=== PATIENT | male | born 1960 | race Caucasian/White ===

== ENCOUNTER → 2016-08-04 | Outpatient (CLI) | payer BC ==
--- NOTE | 2016-08-05 10:19 | CT ---
EXAM DESCRIPTION: Soft Tissue Neck w/Contrast CLINICAL HISTORY: 56 years,Male,MALIGNANT NEOPLASM OF LARYNX, UNSPECIFIED COMPARISON: February 12, 2016 and November 18, 2015 TECHNIQUE: Multiple axial helical tomographic images obtained of the neck and the reconstruct sagittal plane with IV contrast. FINDINGS: There is one lymph node seen in the left anterior cervical chain just below the angle the mandible measuring almost 9 mm in short axis. It is unchanged in the past two exams. There is been a laryngectomy with reconstruction and tracheostomy tube in place. Postsurgical stranding changes seen in the right lateral parapharyngeal space as small low density mass containing some calcifications just posterior to the carotid artery at the level of angle the mandible measuring 1.9 x 0.9 cm it is unchanged since prior studies. The parotid and submandibular glands and thyroid appear unremarkable. Lung apices and superior mediastinum unremarkable. The included paranasal sinuses demonstrate a few small mucous retention cyst in the floor the maxillary sinuses. There is bony fusion of C5-6 and seven. IMPRESSION: Stable exam demonstrating a prior laryngectomy, tracheostomy two and reconstructive surgery of the neck. There is a single stable lymph node at the left angle the mandible and a small low-density mass with some calcifications at the right carotid space at the same level this could just be postsurgical changes but cannot exclude recurrent although it is stable. Electronically signed by: Jens Osorio MD 08/05/2016 10:19 AM CDT
== END | disposition home or self-care (01) ==
LOC: CT 09:32
PROVIDERS: ATTEND Internal Medicine Hematology & Oncology
DX: C32.9 Malignant neoplasm of larynx, unspecified (principal); E03.9 Hypothyroidism, unspecified

== ENCOUNTER → 2017-03-19 | Outpatient (CLI) | payer BC ==
--- NOTE | 2017-03-22 09:28 | CT ---
EXAM DESCRIPTION: CT without and with contrast CLINICAL HISTORY: MALIGNANT NEOPLASM OF LARYNX COMPARISON: None Available. TECHNIQUE: Thin section CT with coronal and sagittal reformatted images. This exam was performed according to our departmental dose-optimization program, which includes automated exposure control, adjustment of the mA and/or kV according to patient size and/or use of iterative reconstruction technique. FINDINGS: The patient has had a laryngectomy and right neck reconstruction with pectoral flap. Stable appearance of the nasopharynx, oropharynx and post laryngectomy upper airway Partially calcified mass lesion medial to the right carotid bifurcation, stable in size and appearance. This has been discussed on the 2 previous studies There is no other mass or adenopathy in the neck IMPRESSION: Stable CT neck compared to 02/12/2016 and 08/04/2016 Electronically signed by: Cong Hernandez MD 03/22/2017 9:26 AM PATTERN CARRIER
--- NOTE | 2017-03-22 09:30 | CT ---
EXAM DESCRIPTION: CT chest with contrast CLINICAL HISTORY: MALIGNANT NEOPLASM OF LARYNX. C32.9 COMPARISON: None Available. TECHNIQUE: Pre and postcontrast spiral CT of the chest with reformatted images. Intravenous iodinated nonionic contrast. This exam was performed according to our departmental dose-optimization program, which includes automated exposure control, adjustment of the mA and/or kV according to patient size and/or use of iterative reconstruction technique. FINDINGS: Linear subsegmental atelectasis or scar inferior lingula left upper lobe and posterior left lower lobe with associated pleural thickening posterior left lower lobe. No pulmonary edema, alveolar infiltrate or effusion. No pulmonary nodule or mass lesion to suggest metastatic disease No thoracic adenopathy or primary mass lesion No mass or adenopathy in the visualized upper abdomen. No acute bony abnormality IMPRESSION: No acute cardiopulmonary process No metastatic disease in the chest Electronically signed by: Cong Hernandez MD 03/22/2017 9:29 AM SHE[employer]ER
== END ==
LOC: CT 08:51
PROVIDERS: ATTEND Internal Medicine Hematology & Oncology
DX: C32.9 Malignant neoplasm of larynx, unspecified (principal)

== ENCOUNTER → 2017-09-02 | Outpatient (CLI) | payer BC, MEDICARE, OTHER ==
--- NOTE | 2017-09-03 08:39 | CT ---
EXAM DESCRIPTION: Soft Tissue Neck w/wo Contrast: Computed Tomography CLINICAL HISTORY: 57 years Male, C32.9. Malignant neoplasm of larynx unspecified. COMPARISON: CT soft tissue neck 08/04/2016. CT chest with IV contrast 03/19/2017. TECHNIQUE: Spiral, axial 2.5 mm scans through the neck soft tissues after infusion of IV contrast. Sagittal and coronal 2.0 mm reconstructions. No adverse reactions. Total Exam DLP: 1945.78 mGy-cm. This exam was performed according to our departmental CT dose-optimization program which includes automated exposure control, adjustment of the mA and/or kV according to patient size and/or use of iterative reconstruction technique; to reduce radiation dose to as low as reasonably achievable (ALARA). FINDINGS: Previous laryngectomy and right neck reconstruction with dextro flap. Stable since the prior study. Stable appearance of the tracheostomy cuff and surrounding soft tissues. Almost 2 cm partially calcified soft tissue mass medial and just superior to the right carotid bifurcation is stable. Nasopharynx or oropharynx hypopharynx stable with no effacement or displacement. No abnormal contrast enhancement. No new soft tissue masses. No adenopathy. Upper mediastinum is unremarkable. Thyroid gland is stable. Minimal chronic sinusitis.. IMPRESSION: 1. Stable laryngeal reconstruction with a right pectoral flap. Since July 2016. No new soft tissue mass or abnormal enhancement. Electronically signed by: Colin Landaverde MD 09/03/2017 8:37 AM CDT
--- NOTE | 2017-09-03 09:00 | CT ---
EXAM DESCRIPTION: Chest w/Contrast : Computed Tomography. CLINICAL HISTORY: C32.9. Malignant neoplasm of the larynx unspecified. COMPARISON: CT scan chest with contrast 03/19/2017. TECHNIQUE: Spiral-axial scans at 5.0 mm intervals through the lungs and thorax with IV contrast. 2.5 mm lung algorithm axial reconstructions. Coronal and sagittal 2.0 Mm reconstructions. No adverse reactions. Total Exam DLP: 1945.78 mGy-cm. This exam was performed according to our departmental dose-optimization program which includes automated exposure control, adjustment of the mA and/or kV according to patient size and/or use of iterative reconstruction technique; to reduce radiation dose to as low as reasonably achievable (ALARA). FINDINGS: Scarring in the left lower lobe with volume loss. Also scarring in the lingula with minimal volume loss left upper lobe. 5 mm nodule and 2 mm nodule in the superior right major fissure were not well seen on the prior study. No nodules elsewhere in the right lung. No pleural effusion or pneumothorax bilaterally. Great vessels are enhancing well in the mediastinum. No soft tissue masses or adenopathy. No adenopathy in the axillary regions. Bilateral gynecomastia. Hiatal hernia again noted with esophageal and gastric varices. 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 Adrenal glands unremarkable. Included pancreas is negative. Thickened gallbladder wall with radiodense stone inferior. Stomach dilated. No focal lesions in the liver. Lymph node superior to the pancreas. Short axis diameter of the largest lymph node is 9 mm. IMPRESSION: 1. Stable volume loss in the left lung and scarring more in the left lower lobe. 2 small nodules which may be intrafissural lymph nodes in the superior right major fissure. No new parenchymal nodules, lung masses or pleural effusion. Optional follow-up chest CT scan in one year interval. Please see [facility] Best Practice recommendations below.* 2. Stable gallbladder wall thickening and radiodense stones representing cholelithiasis. No ascites in the upper abdomen. Stable gastric and esophageal varices and peripancreatic lymph nodes as well as distended stomach and hiatal hernia. *2017 Fleischner Society Recommendations for Multiple Solid Lung Nodules Follow-Up base on size (average of long- and short-axis diameters). Use most suspicious nodule for followup. Nodule Size <6 mm Low-Risk Patient: No routine follow-up Nodule Size <6 mm High-Risk Patient: Optional CT at 12 months Nodule Size 6-8 mm Low-Risk Patient: CT at 3-[address] at 18-24 months Nodule Size 6-8 mm High-Risk Patient: CT at 3-6 months then at 18-24 months Nodule Size (mm) >8 Low-Risk Patient: CT at 3-6 months, then consider CT at 18-24 months Nodule Size (mm) >8 High-Risk Patient: CT at 3-6 months, then at 18-24 months Electronically signed by: Colin Landavedre MD 09/03/2017 8:58 AM CDT
== END ==
LOC: LAB.NP 08:46
PROVIDERS: ATTEND Internal Medicine Hematology & Oncology
DX: C32.9 Malignant neoplasm of larynx, unspecified (principal)

== ENCOUNTER → 2018-03-17 | Outpatient (CLI) | payer OTHER ==
--- NOTE | 2018-03-18 11:59 | CT ---
EXAM DESCRIPTION: Soft Tissue Neck w/Contrast CLINICAL HISTORY: MALIGNANT NEOPLASM OF LARYNX COMPARISON: September 02, 2017 TECHNIQUE: Postcontrast CT images of the neck are obtained with coronal and sagittal reconstructed images. This exam was performed according to our departmental dose-optimization program, which includes automated exposure control, adjustment of the mA and/or kV according to patient size and/or use of iterative reconstruction technique . FINDINGS: Mild mucosal thickening in the partly visualized ethmoid air cells and left maxillary sinus is seen. The mastoid air cells are unremarkable. Visualized intracranial structures show no acute findings. Bilateral parotid and submandibular glands are symmetric and unremarkable. Posterior pharyngeal soft tissue shows no abnormal enhancing mass. Surgical clips in the left tongue are seen and appear stable from previous. Focal low-attenuation mass in the right carotid space at the bifurcation of the internal and external carotid arteries measuring 2.0 x 1.2 cm with central calcifications is similar to previous exam. Postsurgical changes from laryngectomy are noted. Tracheostomy appears in good positioning. Thyroid is unremarkable. Asymmetric soft tissue in the right lower neck to clavicle is unchanged from previous. 7 mm lymph node in the left angle of the mandible is unchanged compared to previous exam. Nonspecific less than 1 cm submandibular and submental lymph nodes are also stable. No abnormal enhancing soft tissue mass is seen. The lung apices are unremarkable. Interbody fusion from C5 through C7 is noted. Mild bilateral facet hypertrophic and degenerative changes at multiple levels are seen. Patient is edentulous. IMPRESSION: Stable postcontrast CT of the neck the patient is status post laryngectomy. Tracheostomy appears stable No CT evidence of local tumor recurrence or metastatic disease in the neck. Stable nonspecific less than 1 cm submandibular and submental lymph nodes Stable partly calcified mass in the right carotid space is unchanged from previous. Electronically signed by: Nahum Oliveira MD 03/18/2018 11:57 AM QUAD STAYER
== END ==
LOC: CT 11:00
PROVIDERS: ATTEND Internal Medicine Hematology & Oncology
DX: C32.9 Malignant neoplasm of larynx, unspecified (principal); Z93.0 Tracheostomy status

== ENCOUNTER → 2019-03-13 | Outpatient (CLI) | payer OTHER | LOC: LAB.O 13:50 | PROVIDERS: ATTEND Internal Medicine Hematology & Oncology | DX: C32.9 Malignant neoplasm of larynx, unspecified (principal) ==

== ENCOUNTER → 2019-09-11 | Outpatient (CLI) | payer OTHER ==
--- NOTE | 2019-09-11 11:15 | CT ---
EXAM DESCRIPTION: Soft Tissue Neck w/Contrast CLINICAL HISTORY: 59 years Male, MALIGNANT NEOPLASM OF LARYNX UNSP TECHNIQUE: This exam was performed according to our departmental dose-optimization program, which includes automated exposure control, adjustment of the mA and/or kV according to patient size and/or use of iterative reconstruction technique. COMPARISON: 09/08/2018 FINDINGS: Visualized brain and orbits are unremarkable. Small mucosal retention cysts in the maxillary sinuses. The parotid and submandibular glands are unremarkable. Scattered atherosclerotic plaque. The jugular veins are unremarkable. Visualized lung apices are clear. No acute or suspicious osseous abnormality. Scattered degenerative changes present. Similar laryngectomy and tracheostomy. The tracheostomy tube is appropriately placed. No tracheal stenosis. No suspicious mass, fluid collection or adenopathy. The previously described partially calcified mass in the right carotid space is unchanged from multiple previous examinations. IMPRESSION: Stable CT of the neck. No suspicious mass or adenopathy. Electronically signed by: Sanju Antoine MD 09/11/2019 11:14 AM CDT
== END ==
LOC: CT 09:09
PROVIDERS: ATTEND Internal Medicine Hematology & Oncology
DX: Z01.812 Encounter for preprocedural laboratory examination (principal); C32.9 Malignant neoplasm of larynx, unspecified